=== PATIENT | male | born 1985 | race Caucasian/White ===

== ENCOUNTER 2018-06-14 16:42 | Emergency (ER) | payer SELFPAY ==
--- NOTE | 2018-06-14 17:58 | EDM.PDOC ---
ED HPI GENERAL MEDICAL PROBLEM - General Chief Complaint: Cardiovascular Problem Stated Complaint: MEDICAL CLEARANCE FOR [facility] Time Seen by Provider: 06/14/18 17:07 Source of Information: Reports: Patient, RN Notes Reviewed - History of Present Illness INITIAL COMMENTS - FREE TEXT/NARRATIVE: 33-year-old male has been sent here from [facility] her further monitoring of elevated blood pressure, elevated heart rate and medical clearance for admission to the [facility]. From what I understand patient had been in alf for a short period of time and now is under the supervision of product safety officer. For what may have been marijuana usage he had been admitted to the [facility] a month or 2 ago and was released after about 10 days or may be left on his own accord. Now he has been ordered back to the [facility] by his product safety officer. However when screened at [facility] his blood pressure was quite elevated and also heart rate is reported to been elevated as well. He has been on medication in the past for hypertension but has not been on medication for quite a long time. He is having no chest pain or difficulty breathing. He has no other unusual symptoms. He is upset with the idea of needing to go back to the [facility] and also upset that he has been "forced to come here to the ED". - Related Data Allergies Allergy/AdvReac Type Severity Reaction Status Date / Time No Known Allergies Allergy Verified 06/14/18 16:49 Home Meds: Home Meds . [No Known Home Meds] 06/14/18 [History] Past Medical History Cardiovascular History: Reports: Hypertension Social & Family History - Tobacco Use Smoking Status *Q: Current Every Day Smoker Years of Tobacco use: 15 Packs/Tins Daily: 1 - Recreational Drug Use Recreational Drug Use: Yes Drug Use in Last 12 Months: Yes Recreational Drug Type: Reports: Marijuana/Hashish ED ROS GENERAL - Review of Systems Review Of Systems: See Below Constitutional: Denies: Fever, Chills, Diaphoresis HEENT: Reports: No Symptoms Respiratory: Denies: Shortness of Breath Cardiovascular: Denies: Chest Pain GI/Abdominal: Denies: Abdominal Pain, Nausea, Vomiting Musculoskeletal: Reports: No Symptoms Skin: Reports: No Symptoms Neurological: Denies: Dizziness, Headache, Trouble Speaking ED EXAM, GENERAL - Physical Exam Exam: See Below General Appearance: Alert, Other (Unhappy to be here) Eye Exam: Bilateral Eye: PERRL Throat/Mouth: Normal Inspection, Normal Oropharynx Head: Atraumatic Neck: Supple Respiratory/Chest: No Respiratory Distress, Lungs Clear, Normal Breath Sounds Cardiovascular: Regular Rate, Rhythm Extremities: Normal Inspection. No: Pedal Edema, Leg Pain Neurological: Alert, Oriented, No Motor/Sensory Deficits Skin Exam: Warm, Dry, Normal Color Course - Vital Signs Last Recorded V/S: Last Vital Signs Temp 98.7 F 06/14/18 16:50 Pulse 100 06/14/18 16:50 Resp 16 06/14/18 16:50 BP 145/101 H 06/14/18 17:38 Pulse Ox 100 06/14/18 16:50 - Re-Assessments/Exams Free Text/Narrative Re-Assessment/Exam: 06/14/18 18:39 Blood pressure was 155/105, reported to have been higher at [facility] prior to arrival, heart rate 100 and also reported to been higher over at [facility] prior to arrival. What pressure 145/101. I discussed this with Irena, on-call for the [facility]. Although his blood pressure is elevated there is situational stress today with him being faced with either going back to alf or otherwise going back to the [facility] neither of which he wants to do. It will be appropriate to monitor his blood pressure over the next week or so. He likely does have borderline hypertension. He is medically cleared at this time go back to the [facility]. Discharge instructions as documented. Departure - Departure Time of Disposition: 17:58 Disposition: Home, Self-Care 01 Condition: Fair Clinical Impression: Hypertension Qualifiers: Hypertension type: unspecified Qualified Code(s): I10 - Essential (primary) hypertension Instructions: Hypertension Referrals: PCP,None [Primary Care Provider] - Forms: ED Department Discharge Additional Instructions: Your initial blood pressure in the ED today was 155/105, second blood pressure reading 145/101. These readings are elevated but with situational stress today it would be inappropriate to start medication at this time. A Medical screening exam has been done and you are medically cleared for readmission to the [facility] at this time.
== END 2018-06-14 18:10 | disposition home or self-care (01) ==
LOC: JD.ED 16:42
DX: I10 Essential (primary) hypertension (principal); F17.210 Nicotine dependence, cigarettes, uncomplicated
CPT/HCPCS: 99283

== ENCOUNTER 2018-06-25 22:58 | Emergency (ER) | payer SELFPAY ==
[2018-06-25] MEDS ORDERED: Hydrochlorothiazide 25 MG Tab PO ONE (23:24)
--- NOTE | 2018-06-25 23:32 | EDM.PDOC ---
ED HPI GENERAL MEDICAL PROBLEM - General Chief Complaint: Drug or Alcohol Abuse Stated Complaint: MEDICAL CLEARENCE Time Seen by Provider: 06/25/18 23:25 - Related Data Allergies Allergy/AdvReac Type Severity Reaction Status Date / Time No Known Allergies Allergy Verified 06/14/18 16:49 Home Meds: Home Meds hydroCHLOROthiazide [Hydrochlorothiazide] 25 mg PO DAILY #60 tab 06/25/18 [Rx] Past Medical History Cardiovascular History: Reports: Hypertension ED ROS GENERAL - Review of Systems Review Of Systems: See Below - Physical Exam Exam: See Below Course - Vital Signs Last Recorded V/S: Last Vital Signs Temp 36.6 C 06/25/18 23:12 Pulse 82 06/25/18 23:12 Resp 16 06/25/18 23:12 BP 178/113 H 06/25/18 23:12 Pulse Ox 99 06/25/18 23:12 - Orders/Labs/Meds Meds: Medications Discontinued Medications Generic Name Dose Route Start Last Admin Trade Name Freq PRN Reason Stop Dose Admin Hydrochlorothiazide 25 mg 06/25/18 23:24 Hydrochlorothiazide PO 06/25/18 23:25 ONETIME ONE Departure - Departure Time of Disposition: 23:26 Disposition: DC/Tfer to [facility]pt Rehab Fac [facility] Clinical Impression: Alcohol abuse - Discharge Information *PRESCRIPTION DRUG MONITORING PROGRAM REVIEWED*: No *COPY OF PRESCRIPTION DRUG MONITORING REPORT IN PATIENT MAUREEN: No Prescriptions: hydroCHLOROthiazide [Hydrochlorothiazide] 25 mg PO DAILY #60 tab Instructions: Alcohol Use Disorder Referrals: PCP,None [Primary Care Provider] - Additional Instructions: Re-check BP in am. Schedule followup with PCP, re: hypertension.
--- NOTE | 2018-06-26 07:03 | ER ---
REASON FOR EMERGENCY ROOM VISIT: Clearance. HISTORY OF PRESENT ILLNESS: This patient was on weekend leave and is here for clearance to be readmitted to [facility]. He has a history of alcohol abuse. He reports an uneventful weekend. He does appear somewhat anxious and states that every time he comes into a clinic or a hospital setting after being away for a while he does tend to have hypertension. He makes it sound like a white coat syndrome sort of thing. He has no symptoms. It should be noted that the patient admits that he is supposed to be on hydrochlorothiazide 25 mg p.o. daily, but he discontinued this quite sometime back and has not restarted. He has no history of cardiac disease. REVIEW OF SYSTEMS: His review of systems is unremarkable. PHYSICAL EXAMINATION: GENERAL: He appears slightly anxious, but otherwise in no acute distress. VITAL SIGNS: He is afebrile. His blood pressure is indeed 178/113, heart rate is 82, respiratory rate is 16, O2 saturation is 99% on room air. HEENT: His oropharynx is normal, unremarkable. NECK: No bruits. No JVD. CHEST: Clear to auscultation with no rales or wheezes. CARDIAC: Regular rate without murmurs. ABDOMEN: Soft, nontender, nondistended. EXTREMITIES: Normal pulses. No deformities. IMPRESSION: 1. History of alcohol abuse. 2. Hypertension, inadequately controlled. PLAN: We rechecked his blood pressure and it was the same. He was given 1 dose of hydrochlorothiazide this evening. He clearly needs to be restarted on this and I informed him that this is a good chance he will need to be started on something else for his hypertension. We will recheck his blood pressure in the morning and it was recommended that he be followed by his primary care provider regarding his hypertension and any additional medications he may need. All questions were answered. He understands and agrees. MMODAL /[id number] DEJAN
== END 2018-06-25 23:42 | disposition home or self-care (01) ==
LOC: JD.ED 22:58
DX: I10 Essential (primary) hypertension (principal); F10.10 Alcohol abuse, uncomplicated
CPT/HCPCS: 99283; A9270